=== PATIENT | female | born 1955 | race Caucasian/White ===

== ENCOUNTER 2017-07-11 06:29 | Day surgery (SDC) | payer OTHER ==
[2017-07-02 11:39] VITALS: BMI 27.1
[2017-07-11] MEDS ORDERED: CYCLOPENTOLATE 2% OPHTH SOLN 2 ML BOTTLE ONE (07:01)
[2017-07-11] MEDS ORDERED: TROPICAMIDE 1% OPHTH SOLN 15 ML BOTTLE ONE (07:01)
[2017-07-11] MEDS ORDERED: PHENYLEPHRINE 2.5% OPHTH SOLN 15 ML BOTTLE ONE (07:01)
[2017-07-11] MEDS ORDERED: CIPROFLOXACIN 0.3% EYE DROPS 5 ML BOTTLE ONE (07:01)
[2017-07-11] MEDS ORDERED: SUCCINYLCHOLINE CHLORIDE 200 MG/10 ML VIAL ONE (07:08)
[2017-07-11] MEDS ORDERED: LIDOCAINE 1% P/F 10 MG/ML VIAL ONE (07:19)
[2017-07-11] MEDS ORDERED: TETRACAINE 0.5% OPHTH SOLN 2 ML BOTTLE ONE ×2 (07:20→07:21)
[2017-07-11] MEDS ORDERED: BSS (NA/CA/MG/K) BALANCED SALT SOLUTION OPHTH SOLN 15 ML BOTTLE ONE (07:20)
[2017-07-11] MEDS ORDERED: CARBACHOL 0.01% INTRA-OCULAR 1.5 ML VIAL ONE (07:20)
[2017-07-11] MEDS ORDERED: NEO/POLYMYX B SULF/DEXAMETH OPHTHALMIC 5ML BOTTLE ONE (07:20)
[2017-07-11] MEDS ORDERED: EPINEPHrine/PF 1 MG/1 ML (1:1,000) AMPULE ONE (07:21)
[2017-07-11] MEDS ORDERED: MIDAZOLAM HCL 2 MG/2 ML SINGLE DOSE VIAL ONE ×2 (07:45→08:11)
[2017-07-11] MEDS ORDERED: ONDANSETRON 4 MG/2 ML VIAL ONE (08:08)
[2017-07-11] MEDS ORDERED: DEXAMETHASONE SOD PHOSPHATE 4 MG/1 ML VIAL ONE (08:08)
--- NOTE | 2017-07-11 09:15 | OP ---
DATE OF OPERATION: 07/11/2017 OPERATIVE PROCEDURE: Lens Phacoemulsification with Posterior Chamber Intraocular Lens Placement Left Eye PREOPERATIVE DIAGNOSIS: Visually Significant Cataract of Left Eye POSTOPERATIVE DIAGNOSIS: Visually Significant Cataract of Left Eye SURGEON: Gary Baldwin M.D. ANESTHESIA: MAC ANESTHESIOLOGIST: PROCEDURE: The patient was brought to the operating room and placed under monitored anesthesia care by Anesthesia. A drop of Tetracaine was then placed over the left eye. The patient was then prepped and draped in the usual sterile manner. A speculum was then placed over the left eye. The eye was then well irrigated with copious amounts of BSS (balanced salt solution). The operating microscope was then moved into position. A paracentesis was performed using a 15 degree blade. At this point 0.5 mL of 1% preservative-free lidocaine was injected into the anterior chamber. Amvisc plus was then injected into the anterior chamber. A clear corneal incision was then formed using a 2.2 mm keratome. A capsulorrhexis was then performed in a continuous circular fashion beginning with a cystotome, completed with an Utratas forceps. Hydrodissection was then performed using BSS on a cannula. The phaco probe was then introduced through the corneal wound and the cataract was removed using the phaco chop technique. Approximately 3 seconds of absolute phaco time was used. The remaining cortex was then removed using irrigation and aspiration with an I/A probe. The capsule was then filled with regular Amvisc and the capsule was noted to be intact. A previously selected foldable posterior chamber intraocular lens was then injected into the capsule through the corneal wound using a lens injector. It was then dialed into position using a Sinskey hook. The Amvisc was then removed using irrigation and aspiration. Miostat was then injected through the paracentesis to constrict the pupil. The paracentesis and corneal wound were then hydrated and noted to be water tight. A drop of Maxitrol was then placed over the eye. The speculum was removed and clear shield was taped over the eye. The patient tolerated the procedure well and there were no surgical complications. The patient was asked to follow up in my office the next day. GARY BALDWIN M.D. EVIN/[id number]
[2017-07-11 10:08] VITALS: BP 122/82; PULSE 81; TEMP 97.6
== END 2017-07-11 09:35 | disposition home or self-care (01) ==
LOC: FASU 06:29
PROVIDERS: ATTEND Ophthalmology
PROC: 08RK3JZ Replacement of Left Lens with Synthetic Substitute, Percutaneous Approach (ICD-10-PCS; principal; 2017-07-11 08:11)
DX: H26.8 Other specified cataract (principal)

== ENCOUNTER 2018-02-13 06:40 | Day surgery (SDC) | payer OTHER ==
[2018-02-06 10:34] VITALS: BMI 27.2
[2018-02-13] MEDS ORDERED: CIPROFLOXACIN 0.3% EYE DROPS 5 ML BOTTLE ONE (07:00)
[2018-02-13] MEDS ORDERED: CYCLOPENTOLATE 2% OPHTH SOLN 2 ML BOTTLE ONE (07:00)
[2018-02-13] MEDS ORDERED: PHENYLEPHRINE 2.5% OPHTH SOLN 15 ML BOTTLE ONE (07:00)
[2018-02-13] MEDS ORDERED: TROPICAMIDE 1% OPHTH SOLN 15 ML BOTTLE ONE (07:00)
[2018-02-13] MEDS ORDERED: TETRACAINE 0.5% OPHTH SOLN 2 ML BOTTLE ONE (07:09)
[2018-02-13] MEDS ORDERED: BSS (NA/CA/MG/K) BALANCED SALT SOLUTION OPHTH SOLN 15 ML BOTTLE ONE (07:09)
[2018-02-13] MEDS ORDERED: LIDOCAINE 1% P/F 10 MG/ML VIAL ONE (07:09)
[2018-02-13] MEDS ORDERED: CARBACHOL 0.01% INTRA-OCULAR 1.5 ML VIAL ONE (07:09)
[2018-02-13] MEDS ORDERED: NEO/POLYMYX B SULF/DEXAMETH OPHTHALMIC 5ML BOTTLE ONE (07:10)
[2018-02-13] MEDS ORDERED: EPINEPHrine/PF 1 MG/1 ML (1:1,000) AMPULE ONE (07:11)
[2018-02-13 07:19] VITALS: PULSE 84
[2018-02-13] MEDS ORDERED: MIDAZOLAM HCL 2 MG/2 ML SINGLE DOSE VIAL ONE (07:46)
--- NOTE | 2018-02-13 09:13 | OP ---
DATE OF OPERATION: 02/13/2018 OPERATIVE PROCEDURE: Lens Phacoemulsification with Posterior Chamber Intraocular Lens Placement, Right Eye PREOPERATIVE DIAGNOSIS: Visually Significant Cataract of Right Eye POSTOPERATIVE DIAGNOSIS: Visually Significant Cataract of Right Eye SURGEON: Gary Baldwin M.D. ANESTHESIA: MAC PROCEDURE: The patient was brought to the operating room and placed under monitored anesthesia care by Anesthesia. A drop of Tetracaine was then placed over the right eye. The patient was then prepped and draped in the usual sterile manner. A speculum was then placed over the right eye. The eye was then well irrigated with copious amounts of BSS (balanced salt solution). The operating microscope was then moved into position. A paracentesis was performed using a 15 degree blade. At this point 0.5 mL of 1% preservative free-lidocaine was injected into the anterior chamber. Amvisc plus was then injected into the anterior chamber. A clear corneal incision was then formed using a 2.2 mm keratome. A capsulorrhexis was then performed in a continuous circular fashion beginning with a cystotome completed with an Utratas forceps. Hydrodissection was then performed using BSS on a cannula. The phaco probe was then introduced through the corneal wound and the cataract was removed using the phaco chop technique. Approximately 3 seconds of absolute phaco time was used. The remaining cortex was then removed using irrigation and aspiration with an I/A probe. The capsule was then filled with regular Amvisc and the capsule was noted to be intact. A previously selected foldable posterior chamber intraocular lens was then injected into the capsule through the corneal wound using a lens injector. It was then dialed into position using a Sinskey hook. The Amvisc was then removed using irrigation and aspiration. Miostat was then injected through the paracentesis to constrict the pupil. The paracentesis and corneal wound were then hydrated and noted to be water tight. A drop of Maxitrol was then placed over the eye. The speculum was removed and clear shield was taped over the eye. The patient tolerated the procedure well and there were no surgical complications. The patient was asked to follow up in my office the next day. GARY BALDWIN M.D. EVIN/[id number]
[2018-02-13 09:19] VITALS: BP 122/74; TEMP 98
== END 2018-02-13 09:55 | disposition home or self-care (01) ==
LOC: FASU 06:40
PROVIDERS: ATTEND Ophthalmology
PROC: 08RJ3JZ Replacement of Right Lens with Synthetic Substitute, Percutaneous Approach (ICD-10-PCS; principal; 2018-02-13 08:20)
DX: H26.8 Other specified cataract (principal)

== ENCOUNTER 2022-06-13 08:09 | Emergency (ER) | payer BC ==
[2022-06-13 08:20] VITALS: BP 156/104; PULSE 91; RESP 20; TEMP 97.9; BMI 27.1
[2022-06-13 09:13] LABS: HEMATOCRIT 40.8 % (32.4-45.2); HEMOGLOBIN 13.9 G/dL (10.7-15.3); MCH 29.6 pg (25.7-33.7); MEAN CELL VOLUME 87.1 fl (80-96); MEAN PLT VOLUME 7.7 fl (7.5-11.1); PLATELET COUNT 262.8 10^3/uL (134-434); RBC 4.69 10^6/uL (3.60-5.2); RDW 14.4 % (11.6-15.6); WHITE BLOOD COUNT 5.5 10^3/uL (4.0-10.8)
[2022-06-13 09:21] LABS: BILIRUBIN,TOTAL 0.7 mg/dl (0.2-1); CALCIUM 8.8 mg/dl (8.5-10); CREATININE 0.7 mg/dl (0.55-1.3); TOT PROT 6.9 g/dl (6.4-8.2)
[2022-06-13 09:23] LABS: PLATELET ESTIMATE ADEQUATE
== END 2022-06-13 11:49 | disposition home or self-care (01) ==
LOC: FER 08:09
DX: R07.81 Pleurodynia (principal)
CPT/HCPCS: 36415; 74176-TC; 80053; 81003; 85027; 99284-25

== ENCOUNTER 2022-09-20 06:17 | Day surgery (SDC) | payer BC ==
[2022-09-08 17:25] VITALS: BMI 27.1
[2022-09-20] MEDS ORDERED: CEFAZOLIN 2 GM in DEXTROSE 5%-WATER - 50 ML IVPB ONE (06:30)
[2022-09-20] MEDS ORDERED: PROPOFOL 40 ML ONE (06:37)
[2022-09-20] MEDS ORDERED: DEXAMETHASONE SOD PHOSPHATE 4 MG/1 ML VIAL ONE ×2 (06:37→09:35)
[2022-09-20] MEDS ORDERED: ONDANSETRON 4 MG/2 ML VIAL ONE ×2 (06:37→09:35)
[2022-09-20] MEDS ORDERED: SUCCINYLCHOLINE CHLORIDE 200 MG/10 ML SYRINGE ONE (06:37)
[2022-09-20] MEDS ORDERED: MIDAZOLAM HCL 2 MG/2 ML SINGLE DOSE VIAL ONE (06:38)
[2022-09-20] MEDS ORDERED: ceFAZolin SODIUM 1 GM VIAL ONE (06:38)
[2022-09-20] MEDS ORDERED: BUPIVACAINE LIPOSOME/PF (EXPAREL) 266 MG/20 ML VIAL ONE (06:50)
[2022-09-20] MEDS ORDERED: BUPIVACAINE HCL/PF 0.5% (5MG/ML) 10 ML VIAL ONE (06:50)
[2022-09-20] MEDS ORDERED: VANCOMYCIN 1,000 MG VIAL (RESTRICTED TO ID ONLY) ONE (07:05)
[2022-09-20] MEDS ORDERED: TRANEXAMIC ACID 1000 MG/10 ML VIAL IVPUSH ONE (08:00)
[2022-09-20] MEDS ORDERED: MAG HYDROX/AL HYDROX/SIMETH 30 ML UNIT-DOSE CUP PO PRN (10:30)
[2022-09-20] MEDS ORDERED: LACTATED RINGERS SOLUTION 1,000 ML IV SCH (10:30)
[2022-09-20] MEDS ORDERED: MAGNESIUM HYDROX 2400MG/30ML ORAL SUSPENSION 30 ML CUP PO PRN (10:30)
[2022-09-20] MEDS ORDERED: oxyCODONE HCL 5 MG TABLET PO PRN ×2 (10:51)
[2022-09-20] MEDS ORDERED: ACETAMINOPHEN 1000 MG/100 ML BAG IVPB ONE (11:08)
[2022-09-20] MEDS: oxyCODONE HCL 5 MG TABLET PO PRN ×4 (11:30→23:58)
[2022-09-20] MEDS ORDERED: KETOROLAC TROMETHAMINE 30 MG/1 ML VIAL IVPUSH ONE ×2 (11:34→11:35)
[2022-09-20 15:05] VITALS: RESP 18
[2022-09-20] MEDS ORDERED: CEFAZOLIN SODIUM 2 GM in DEXTROSE 5%-WATER 100 ML IVPB SCH (16:00)
[2022-09-20] MEDS: ACETAMINOPHEN 1000 MG/100 ML BAG IVPB SCH (20:02)
[2022-09-20] MEDS ORDERED: ROSUVASTATIN CA 5 MG TABLET PO SCH (22:00)
[2022-09-20] MEDS ORDERED: ASPIRIN 81 MG CHEWABLE TABLETS PO SCH (22:00)
[2022-09-20] MEDS ORDERED: SENNOSIDES/DOCUSATE COMBO (SENNA PLUS) TABLET (UD) PO SCH (22:00)
[2022-09-20] MEDS ORDERED: FAMOTIDINE 20 MG TABLET PO SCH (22:00)
[2022-09-20] MEDS ORDERED: EZETIMIBE 10 MG TABLET (FP) PO SCH (22:00)
[2022-09-20] MEDS ORDERED: PATIENT'S OWN MEDICATION (NON-FORMULARY) (Lifitegrast [Xiidra] 1 EACH Droperette) OU SCH (22:00)
[2022-09-21] MEDS ORDERED: CEFAZOLIN SODIUM 2 GM in DEXTROSE 5%-WATER 100 ML IVPB SCH (01:00)
[2022-09-21] MEDS: ONDANSETRON 4 MG/2 ML VIAL IVPUSH PRN ×2 (03:12→08:18)
[2022-09-21] MEDS: oxyCODONE HCL 5 MG TABLET PO PRN ×2 (03:12→08:04)
[2022-09-21] MEDS: ACETAMINOPHEN 1000 MG/100 ML BAG IVPB SCH (03:13)
[2022-09-21 09:12] VITALS: BP 110/89; PULSE 85; TEMP 97.5
[2022-09-21] MEDS ORDERED: ONDANSETRON *ODT* 4 MG TABLET SL PRN (09:24)
[2022-09-21] MEDS ORDERED: MULTIVITAMINS (DAILY MVI) TABLET (FP) PO SCH (10:00)
[2022-09-21] MEDS ORDERED: DEXAMETHASONE 4 MG TABLET (FP) PO ONE (10:00)
[2022-09-21] MEDS ORDERED: PATIENT'S OWN MEDICATION (NON-FORMULARY) (Dexlansoprazole [Dexilant] 60 MG Cap.Dr.Bp) PO SCH (10:00)
== END 2022-09-21 11:20 | disposition home or self-care (01) ==
LOC: FASU 06:17 → FASUSAT 06:17 → FM/S 11:50 → FASUSAT 09-21 11:20
PROVIDERS: ATTEND Orthopaedic Surgery
PROC: 0SRC0JA Replacement of Right Knee Joint with Synthetic Substitute, Uncemented, Open Approach (ICD-10-PCS; principal; 2022-09-20 08:15)
DX: M17.11 Unilateral primary osteoarthritis, right knee (principal)
CPT/HCPCS: 73560-TC-RT-FY; 94760; 97010-GP; 97116-GP; 97162-GP; C1776; C1889; Q0162

== ENCOUNTER 2023-11-28 06:13 | Day surgery (SDC) | payer OTHER, MEDICARE ==
[2023-11-19 08:05] VITALS: BMI 27.1
[2023-11-28] MEDS ORDERED: ONDANSETRON 4 MG/2 ML VIAL ONE ×2 (07:11→08:49)
[2023-11-28] MEDS ORDERED: MIDAZOLAM HCL 2 MG/2 ML SINGLE DOSE VIAL ONE (07:11)
[2023-11-28] MEDS ORDERED: SUCCINYLCHOLINE CHLORIDE 200 MG/10 ML SYRINGE ONE (07:11)
[2023-11-28] MEDS ORDERED: DEXAMETHASONE SOD PHOSPHATE 4 MG/1 ML VIAL ONE ×2 (07:11→08:49)
[2023-11-28] MEDS ORDERED: PROPOFOL 40 ML ONE (07:11)
[2023-11-28] MEDS ORDERED: ceFAZolin SODIUM 1 GM VIAL ONE (07:12)
[2023-11-28] MEDS ORDERED: BUPIVACAINE LIPOSOME/PF (EXPAREL) 266 MG/20 ML VIAL ONE (07:16)
[2023-11-28] MEDS ORDERED: BUPIVACAINE HCL/PF 0.5% (5MG/ML) 10 ML VIAL ONE (07:17)
[2023-11-28] MEDS ORDERED: TRANEXAMIC ACID 1000 MG/10 ML VIAL ONE ×2 (07:53→08:44)
[2023-11-28] MEDS ORDERED: LIDOCAINE HCL 2% JELLY 11 ML TP ONE (08:05)
[2023-11-28] MEDS ORDERED: PROPOFOL 20 ML ONE ×2 (08:07→08:56)
[2023-11-28] MEDS ORDERED: KETOROLAC TROMETHAMINE 30 MG/1 ML VIAL ONE (09:52)
[2023-11-28] MEDS ORDERED: ACETAMINOPHEN INJECTION 100 ML IVPB ONE (09:53)
[2023-11-28] MEDS: KETOROLAC TROMETHAMINE 30 MG/1 ML VIAL IVPUSH ONE (09:55)
[2023-11-28] MEDS ORDERED: FENTANYL CITRATE/PF 50 MCG/ML VIAL ONE ×2 (09:56→10:42)
[2023-11-28] MEDS ORDERED: ONDANSETRON 4 MG/2 ML VIAL IVPUSH PRN (10:04)
[2023-11-28] MEDS ORDERED: LACTATED RINGERS SOLUTION 1,000 ML IV SCH (10:15)
[2023-11-28] MEDS: ACETAMINOPHEN 1000 MG/100 ML BAG IVPB ONE (10:45)
[2023-11-28] MEDS: traMADol HCL 50 MG TABLET PO PRN (12:00)
[2023-11-28] MEDS ORDERED: traMADol HCL 50 MG TABLET ONE ×2 (12:04→13:31)
[2023-11-28 15:06] VITALS: TEMP 97
[2023-11-28 15:17] VITALS: RESP 16
[2023-11-28 15:47] VITALS: BP 140/90; PULSE 79
== END 2023-11-28 14:30 | disposition home or self-care (01) ==
LOC: FASUSAT 06:13
PROVIDERS: ATTEND Orthopaedic Surgery
PROC: 0QUD0JZ Supplement Right Patella with Synthetic Substitute, Open Approach (ICD-10-PCS; principal; 2023-11-28 08:03)
DX: M17.11 Unilateral primary osteoarthritis, right knee (principal); Z96.659 Presence of unspecified artificial knee joint
CPT/HCPCS: 27438; C1713; 73560-TC-RT-FY; 87070; 87205; 94760; C1776; C1889; J0131